=== PATIENT | female | born 1990 | race Caucasian/White ===

== ENCOUNTER 2022-10-22 08:35 | Outpatient (CLI) | payer OTHER, SELFPAY ==
--- NOTE | ~2022-10-22 | MR_ITS ---
EXAMINATION: MR ankle LT wo con DATE: 10/22/2022 10:02 INDICATION: Acute onset left ankle pain TECHNIQUE: Magnetic resonance imaging (MRI) of the left ankle was performed without intravenous contr ast. Sequences included sagittal, coronal, and axial proton-density weighted fast spin echo without a nd with fat saturation additional sagittal fluid sensitive FSE STIR sequence was also obtained. COMPARISON: None. FINDINGS: Medial ankle ligaments: Deep and superficial deltoid ligaments as well as the spring ligament are normal. Lateral ankle ligaments: The anterior and posterior inferior tibiofibular ligaments are normal. The anterior talofibular, calc aneofibular and posterior talofibular ligaments are normal. Tendons: Achilles tendon is normal. The peroneus longus and brevis tendons are normal. The tibialis anterior a nd extensor hallucis longus and extensor digitorum longus tendons are normal. The tibialis posterior, flexor digitorum longus and flexor hallucis longus tendons are normal. Plantar fascia: Plantar aponeurosis is normal. Bones/other: Bone alignment is normal. Low signal intensity bone island at the anterior process of the calcaneus w ith additional tiny bone island at the posterior tuberosity. Bone marrow signal is otherwise normal w ith no fracture or pathologic marrow replacing process. Minimal to mild osteoarthritis at a few of th e tarsal metatarsal joints. Remaining joint spaces are normal. The marker indicating the site of maxi mal pain overlies the dorsolateral hindfoot. The underlying bifurcate ligament appears normal. The Li sfranc ligament complex also normal. Fluid: Physiologic amount fluid in the joint space. No tenosynovitis, bursitis or other abnormal fluid colle ctions. IMPRESSION: 1. Minimal to mild osteoarthritis at the tarsal metatarsal joints. Otherwise unremarkable MRI of the left ankle and hindfoot. Reviewed, dictated and finalized at location A. IMPRESSION: 1. Minimal to mild osteoarthritis at the tarsal metatarsal joints. Otherwise un remarkable MRI of the left ankle and hindfoot.
== END 2022-10-22 08:36 | disposition home or self-care (01) ==
LOC: ANHIMG 08:40
PROVIDERS: PCP Internal Medicine; Visit Provider Orthopaedic Surgery
DX: M19.072 Primary osteoarthritis, left ankle and foot (principal)
CPT/HCPCS: 73721